=== PATIENT | female | born 1970 | race Hispanic/Latino ===

== ENCOUNTER 2021-09-17 14:45 | Emergency (ER) | payer OTHER ==
[~2021-09-17] VITALS: Ht 157.5 cm; Wt 117.9 kg
[2021-09-17] MEDS ORDERED: ACETAMINOPHEN 500 MG TABLET PO ONE (15:30)
[2021-09-17] MEDS ORDERED: ACET-2247 PO (16:14)
[2021-09-17 16:15] VITALS: BP 162/86
[2021-09-24] MEDS ORDERED: OMEP20TA25 PO (23:19)
== END 2021-09-17 16:35 | disposition home or self-care (01) ==
LOC: EDH 14:45
DX: J02.9 Acute pharyngitis, unspecified (principal); Z20.822 Contact with and (suspected) exposure to COVID-19; E66.9 Obesity, unspecified; I10 Essential (primary) hypertension; Z88.5 Allergy status to narcotic agent; Z88.8 Allergy status to other drugs, medicaments and biological substances; Z68.42 Body mass index [BMI] 45.0-49.9, adult
CPT/HCPCS: 87804; 87880

== ENCOUNTER 2021-09-24 19:27 | Emergency (ER) | payer MEDICAID, OTHER ==
[~2021-09-24] VITALS: Ht 157.5 cm; Wt 119.3 kg
[~2021-09-24 19:27] MED LIST: ACET-2247 PO
[2021-09-24] MEDS ORDERED: 0.9%NACL 1000ML 1,000 ML IV ONE ×2 (19:59→20:00)
[2021-09-24 20:02] LABS: BASOPHILS % (AUTO) 0.4 % (0.0-5.0); EOSINOPHILS % (AUTO) 2.7 % (0.0-8.0); HEMATOCRIT 41.4 % (36-48); LYMPHOCYTES % (AUTO) 19.6 % (21.0-51.0); MEAN CORPUSCULAR HEMOGLOBIN 31.1 pg (27.0-33.0); MEAN CORPUSCULAR HGB CONC 33.1 g/dL (32.0-36.0); MEAN CORPUSCULAR VOLUME 93.9 fL (79-99); MONOCYTES % (AUTO) 5.5 % (3.0-13.0); NEUTROPHILS % (AUTO) 71.3 % (40.0-77.0); PLATELET COUNT (AUTO) 151 K/uL (130-400); RED BLOOD CELL COUNT(AUTO) 4.41 MIL/uL (4.00-5.50); RED CELL DISTRIBUTION WIDTH 14.8 % (11.0-15.5); WHITE BLOOD COUNT (AUTO) 7.9 K/uL (4.8-10.8)
[2021-09-24 20:03] LABS: APPEARANCE,URINE Cloudy (CLEAR); BILIRUBIN,URINE Moderate (NEGATIVE); COLOR,URINE Dark Yellow (YELLOW); GLUCOSE, URINE (UA) Negative (NEGATIVE); KETONES,URINE 15 mg/dL (NEGATIVE); LEUKOCYTE ESTERASE ,URINE Small (NEGATIVE); NITRATE,URINE Positive (NEGATIVE); OCCULT BLOOD,URINE Negative (NEGATIVE); PH,URINE 7.5 (5.0-8.0); PROTEIN,URINE Trace mg/dL (NEGATIVE)
[2021-09-24] MEDS ORDERED: FAMOTIDINE 20MG VIAL IV ONE ×2 (20:04→20:30)
[2021-09-24] MEDS ORDERED: MORPHINE 4 MG SYG ONE (20:04)
[2021-09-24] MEDS ORDERED: ONDANSETRON 4MG INJ ONE (20:04)
[2021-09-24 20:13] LABS: CREATININE 0.7 mg/dL (0.5-1.5); POTASSIUM 3.6 mmol/L (3.5-5.1)
[2021-09-24 20:24] LABS: ALBUMIN 3.5 g/dL (3.5-5.0); BILIRUBIN,TOTAL 2.4 mg/dL (0.2-1.0); TOTAL PROTEIN, SERUM 7.9 g/dL (6.0-8.3)
[2021-09-24] MEDS ORDERED: IOHEXOL-350 75 ML VIAL IV ONE (20:28)
[2021-09-24] MEDS ORDERED: ONDANSETRON 4MG INJ IVP ONE (20:30)
[2021-09-24] MEDS ORDERED: MORPHINE 4 MG SYG IVP ONE (20:30)
[2021-09-24 20:48] LABS: BACTERIA,URINE Few /HPF (None Seen); MUCUS,URINE Few LPF (None Seen); SQUAMOUS EPITHELIAL CELL,UR Few /HPF (0-2)
[2021-09-24] MEDS ORDERED: CEFTRIAXONE 1G VIAL IV ONE (21:30)
[2021-09-24] MEDS ORDERED: PANTOPRAZOLE 40 MG/VIAL IVP ONE (22:30)
[2021-09-24] MEDS ORDERED: LORAZEPAM 2 MG/ML 1 ML VIAL IVP ONE (22:30)
[2021-09-24] MEDS ORDERED: ONDA4TAB10 PO (23:19)
[2021-09-24] MEDS ORDERED: FAMO-136 PO (23:19)
[2021-09-24] MEDS ORDERED: OMEP20TA20 PO (23:19)
[2021-09-24] MEDS ORDERED: L.AC1CAP6 PO (23:19)
[2021-09-24 23:39] VITALS: BP 120/74
== END 2021-09-24 23:49 | disposition home or self-care (01) ==
LOC: EDH 19:27
DX: K52.9 Noninfective gastroenteritis and colitis, unspecified (principal); F41.9 Anxiety disorder, unspecified; K76.0 Fatty (change of) liver, not elsewhere classified; R74.8 Abnormal levels of other serum enzymes; Z88.5 Allergy status to narcotic agent; Z88.8 Allergy status to other drugs, medicaments and biological substances; Z90.710 Acquired absence of both cervix and uterus; Z79.899 Other long term (current) drug therapy
CPT/HCPCS: 36415; 74177; 80053; 81001; 82140; 83605; 83690; 84484; 84702; 85025; 87088; 93005; 96361; 96374; 96375; 99285; J0696; J2060; J2270; J2405; J7030; Q9967; S0028; S0164; C9113; J3490

== ENCOUNTER 2021-10-30 18:06 | Emergency (ER) | payer OTHER ==
[~2021-10-30] VITALS: Ht 157.5 cm; Wt 90.7 kg
[~2021-10-30 18:06] MED LIST changes: +FAMO-136 PO; +L.AC1CAP6 PO; +OMEP20TA20 PO; +ONDA4TAB10 PO
[2021-10-30 18:47] LABS: BASOPHILS % (AUTO) 0.4 % (0.0-5.0); EOSINOPHILS % (AUTO) 1.6 % (0.0-8.0); HEMATOCRIT 42.7 % (36-48); LYMPHOCYTES % (AUTO) 19.2 % (21.0-51.0); MEAN CORPUSCULAR HEMOGLOBIN 31.9 pg (27.0-33.0); MEAN CORPUSCULAR VOLUME 93.8 fL (79-99); MONOCYTES % (AUTO) 4.4 % (3.0-13.0); NEUTROPHILS % (AUTO) 73.9 % (40.0-77.0); PLATELET COUNT (AUTO) 253 K/uL (130-400); RED BLOOD CELL COUNT(AUTO) 4.55 MIL/uL (4.00-5.50); RED CELL DISTRIBUTION WIDTH 13.2 % (11.0-15.5); WHITE BLOOD COUNT (AUTO) 13.3 K/uL (4.8-10.8)
[2021-10-30 18:49] LABS: APPEARANCE,URINE Clear (CLEAR); BILIRUBIN,URINE Negative (NEGATIVE); COLOR,URINE Yellow (YELLOW); GLUCOSE, URINE (UA) Negative (NEGATIVE); KETONES,URINE Negative (NEGATIVE); LEUKOCYTE ESTERASE ,URINE Small (NEGATIVE); NITRATE,URINE Negative (NEGATIVE); OCCULT BLOOD,URINE Negative (NEGATIVE); PROTEIN,URINE Negative (NEGATIVE)
[2021-10-30 18:51] LABS: CREATININE 0.7 mg/dL (0.5-1.5); POTASSIUM 3.8 mmol/L (3.5-5.1)
[2021-10-30 18:56] LABS: BACTERIA,URINE Few /HPF (None Seen); RBC,URINE 0-1 /HPF (0-1); SQUAMOUS EPITHELIAL CELL,UR Few /HPF (0-2)
[2021-10-30 18:57] LABS: MUCUS,URINE Rare LPF (None Seen)
[2021-10-30 18:58] LABS: ALBUMIN 3.3 g/dL (3.5-5.0); BILIRUBIN,TOTAL 0.6 mg/dL (0.2-1.0); TOTAL PROTEIN, SERUM 7.4 g/dL (6.0-8.3)
[2021-10-30 19:48] LABS: AMPHET/METH SCREEN,URINE NEGATIVE (NEGATIVE); BARBITURATE SCREEN, URINE NEGATIVE (NEGATIVE); BENZODIAZEPINES SCREEN,URINE POSITIVE (NEGATIVE); CANNABINOID SCREEN,URINE NEGATIVE (NEGATIVE); COCAINE SCREEN,URINE NEGATIVE (NEGATIVE); OPIATE SCREEN,URINE NEGATIVE (NEGATIVE); PHENCYCLIDINE SCREEN,URINE NEGATIVE (NEGATIVE)
[2021-10-30] MEDS ORDERED: PANTOPRAZOLE 40 MG/VIAL IVP ONE (20:00)
[2021-10-30] MEDS ORDERED: 0.9%NACL 1000ML 1,000 ML IV ONE (20:00)
[2021-10-30] MEDS ORDERED: ONDANSETRON 4MG INJ IVP ONE (20:00)
[2021-10-30] MEDS ORDERED: PANTOPRAZOLE 40 MG/VIAL ONE (21:05)
[2021-10-30] MEDS ORDERED: ONDANSETRON 4MG INJ ONE (21:05)
[2021-10-30] MEDS ORDERED: MAG/ALUM/SIMETH 30 ML UDCUP PO ONE (22:00)
[2021-10-30] MEDS ORDERED: LIDOCAINE HCL 2% VISCOUS 15 ML UDCUP PO ONE (22:00)
[2021-10-30] MEDS ORDERED: DICYCLOMINE HCL 10 MG/5 ML ML PO ONE (22:00)
[2021-10-30] MEDS ORDERED: KETOROLAC 15MG/ML VIAL (15MG/ML) IV ONE (22:00)
[2021-10-30] MEDS ORDERED: CEPH500B PO (22:16)
[2021-10-30] MEDS ORDERED: FAMO20TA8 PO (22:16)
[2021-10-30 22:57] VITALS: BP 124/67
== END 2021-10-30 23:05 | disposition home or self-care (01) ==
LOC: EDH 18:06
DX: N39.0 Urinary tract infection, site not specified (principal); K29.70 Gastritis, unspecified, without bleeding; K21.9 Gastro-esophageal reflux disease without esophagitis; Z79.1 Long term (current) use of non-steroidal anti-inflammatories (NSAID); Z79.899 Other long term (current) drug therapy; Z88.5 Allergy status to narcotic agent; Z88.8 Allergy status to other drugs, medicaments and biological substances
CPT/HCPCS: 36415; 80053; 80305; 81001; 81025; 83690; 85025; 96361; 96374; 96375; 99284; C9113; J1885; J2405; J7030

== ENCOUNTER 2021-11-30 16:24 | Emergency (ER) | payer MEDICAID, OTHER ==
[~2021-11-30] VITALS: Ht 157.5 cm; Wt 108.9 kg
[~2021-11-30 16:24] MED LIST changes: +CEPH500B PO; +FAMO20TA8 PO
[2021-11-30 17:04] LABS: BASOPHILS % (AUTO) 0.3 % (0.0-5.0); EOSINOPHILS % (AUTO) 0.2 % (0.0-8.0); HEMATOCRIT 42.8 % (36-48); LYMPHOCYTES % (AUTO) 16.3 % (21.0-51.0); MEAN CORPUSCULAR HEMOGLOBIN 30.8 pg (27.0-33.0); MEAN CORPUSCULAR HGB CONC 34.6 g/dL (32.0-36.0); MEAN CORPUSCULAR VOLUME 89.2 fL (79-99); MONOCYTES % (AUTO) 3.4 % (3.0-13.0); NEUTROPHILS % (AUTO) 79.5 % (40.0-77.0); PLATELET COUNT (AUTO) 260 K/uL (130-400); RED CELL DISTRIBUTION WIDTH 12.4 % (11.0-15.5); WHITE BLOOD COUNT (AUTO) 12.1 K/uL (4.8-10.8)
[2021-11-30 17:15] LABS: CREATININE 0.9 mg/dL (0.5-1.5); POTASSIUM 3.9 mmol/L (3.5-5.1)
[2021-11-30 17:24] LABS: ALBUMIN 3.8 g/dL (3.5-5.0); BILIRUBIN,TOTAL 2.2 mg/dL (0.2-1.0); TOTAL PROTEIN, SERUM 8.3 g/dL (6.0-8.3)
[2021-11-30] MEDS ORDERED: LORAZEPAM 2 MG/ML 1 ML VIAL ONE (18:49)
[2021-11-30] MEDS ORDERED: ALPR2TAB2 PO (19:01)
[2021-11-30 19:02] VITALS: BP 131/82
== END 2021-11-30 19:12 | disposition home or self-care (01) ==
LOC: EDH 16:24
DX: F41.9 Anxiety disorder, unspecified (principal); F13.20 Sedative, hypnotic or anxiolytic dependence, uncomplicated; F32.A Depression, unspecified; I10 Essential (primary) hypertension; K21.9 Gastro-esophageal reflux disease without esophagitis; Z88.5 Allergy status to narcotic agent; Z88.8 Allergy status to other drugs, medicaments and biological substances; Z79.899 Other long term (current) drug therapy
CPT/HCPCS: 36415; 80053; 84484; 85025; 93005; 96372; 99284; J2060

== ENCOUNTER 2021-12-06 17:31 | Emergency (ER) | payer MEDICAID ==
[~2021-12-06] VITALS: Ht 157.5 cm; Wt 113.4 kg
[~2021-12-06 17:31] MED LIST changes: +ALPR2TAB2 PO
[2021-12-06 18:03] LABS: BASOPHILS % (AUTO) 0.2 % (0.0-5.0); EOSINOPHILS % (AUTO) 0.8 % (0.0-8.0); HEMATOCRIT 40.3 % (36-48); LYMPHOCYTES % (AUTO) 21.5 % (21.0-51.0); MEAN CORPUSCULAR HEMOGLOBIN 31.1 pg (27.0-33.0); MEAN CORPUSCULAR HGB CONC 34.7 g/dL (32.0-36.0); MEAN CORPUSCULAR VOLUME 89.6 fL (79-99); MONOCYTES % (AUTO) 8.4 % (3.0-13.0); NEUTROPHILS % (AUTO) 68.7 % (40.0-77.0); PLATELET COUNT (AUTO) 150 K/uL (130-400); RED CELL DISTRIBUTION WIDTH 12.7 % (11.0-15.5); WHITE BLOOD COUNT (AUTO) 8.4 K/uL (4.8-10.8)
[2021-12-06 18:13] LABS: CREATININE 0.7 mg/dL (0.5-1.5); POTASSIUM 3.5 mmol/L (3.5-5.1)
[2021-12-06 18:17] LABS: ALBUMIN 3.4 g/dL (3.5-5.0); BILIRUBIN,TOTAL 1.7 mg/dL (0.2-1.0); TOTAL PROTEIN, SERUM 7.6 g/dL (6.0-8.3)
[2021-12-06 18:19] LABS: INR 1.04 (0.85-1.15); PROTHROMBIN TIME 11.3 SEC (9.6-11.6)
[2021-12-06 18:20] LABS: PARTIAL THROMBOPLASTIN TIME 27.4 SEC (26.3-35.5)
[2021-12-06] MEDS ORDERED: LORAZEPAM 2 MG/ML 1 ML VIAL IVP ONE (20:00)
[2021-12-06] MEDS ORDERED: KETOROLAC 15MG/ML VIAL (15MG/ML) IV ONE (20:00)
[2021-12-06] MEDS ORDERED: 0.9%NACL 1000ML 1,000 ML IV ONE (20:00)
[2021-12-06] MEDS ORDERED: ONDANSETRON 4MG INJ IVP ONE (20:00)
[2021-12-06 20:34] VITALS: BP 120/66
[2021-12-06] MEDS ORDERED: FAMO-136 PO (20:46)
[2021-12-06] MEDS ORDERED: ONDA4TAB10 PO (20:46)
[2021-12-06] MEDS ORDERED: PANT40TA PO (20:46)
== END 2021-12-06 21:04 | disposition home or self-care (01) ==
LOC: EDH 17:31
DX: K29.70 Gastritis, unspecified, without bleeding (principal); F41.9 Anxiety disorder, unspecified; I10 Essential (primary) hypertension; K21.9 Gastro-esophageal reflux disease without esophagitis; Z79.1 Long term (current) use of non-steroidal anti-inflammatories (NSAID); Z79.899 Other long term (current) drug therapy; Z88.5 Allergy status to narcotic agent; Z88.8 Allergy status to other drugs, medicaments and biological substances
CPT/HCPCS: 36415; 80053; 83690; 84484; 85025; 85610; 85730; 93005; 96361; 96374; 96375; 99284; J1885; J2060; J2405; J7030

== ENCOUNTER 2022-02-15 13:02 | Emergency (ER) | payer MEDICAID ==
[~2022-02-15] VITALS: Ht 157.5 cm; Wt 122.5 kg
[~2022-02-15 13:02] MED LIST changes: +PANT40TA PO
[2022-02-15] MEDS ORDERED: ACETAMINOPHEN WITH CODEINE 1 TAB TAB PO ONE (14:00)
[2022-02-15 14:48] VITALS: BP 147/100
[2022-02-15] MEDS ORDERED: CYCL10TA16 PO (15:05)
[2022-02-15] MEDS ORDERED: IBUP-2070 PO (15:05)
== END 2022-02-15 15:20 | disposition home or self-care (01) ==
LOC: EDH 13:02
DX: S00.12XA Contusion of left eyelid and periocular area, initial encounter (principal); S00.03XA Contusion of scalp, initial encounter; S10.93XA Contusion of unspecified part of neck, initial encounter; M54.50 Low back pain, unspecified; M25.512 Pain in left shoulder; I10 Essential (primary) hypertension; M19.90 Unspecified osteoarthritis, unspecified site; K21.9 Gastro-esophageal reflux disease without esophagitis; Z88.5 Allergy status to narcotic agent; Z88.8 Allergy status to other drugs, medicaments and biological substances; Z79.899 Other long term (current) drug therapy; Y08.89XA Assault by other specified means, initial encounter; Y93.89 Activity, other specified; Y92.89 Other specified places as the place of occurrence of the external cause; Y99.8 Other external cause status
CPT/HCPCS: 70450; 70486; 72125; 72131; 73030

== ENCOUNTER 2022-03-17 18:54 | Emergency (ER) | payer MEDICAID ==
[~2022-03-17] VITALS: Ht 157.5 cm; Wt 120.2 kg
[~2022-03-17 18:54] MED LIST changes: +CYCL10TA16 PO; +IBUP-2070 PO
[2022-03-17] MEDS ORDERED: BENZ200C53 PO (22:13)
[2022-03-17] MEDS ORDERED: ALBULBK PO (22:13)
[2022-03-17 22:33] VITALS: BP 140/85
== END 2022-03-17 22:34 | disposition home or self-care (01) ==
LOC: EDH 18:54
DX: R06.2 Wheezing (principal); R05.9 Cough, unspecified; Z20.822 Contact with and (suspected) exposure to COVID-19; F32.A Depression, unspecified; F41.9 Anxiety disorder, unspecified; I10 Essential (primary) hypertension; K21.9 Gastro-esophageal reflux disease without esophagitis; M19.90 Unspecified osteoarthritis, unspecified site; Z79.1 Long term (current) use of non-steroidal anti-inflammatories (NSAID); Z79.899 Other long term (current) drug therapy; Z88.5 Allergy status to narcotic agent; Z88.8 Allergy status to other drugs, medicaments and biological substances
CPT/HCPCS: 99284; 71045; 87635; 87804 ×2; C9803

== ENCOUNTER 2022-06-04 20:42 | Emergency (ER) | payer MEDICAID ==
[~2022-06-04] VITALS: Ht 157.5 cm; Wt 127.5 kg
[~2022-06-04 20:42] MED LIST changes: +ALBULBK PO; +BENZ200C53 PO
[2022-06-04 20:53] VITALS: BP 168/87
[2022-06-04] MEDS ORDERED: SOLU-MEDROL 125MG VIAL IM ONE (22:00)
[2022-06-04] MEDS ORDERED: CYCLOBENZAPRINE HCL 10 MG TABLET PO ONE (22:00)
[2022-06-04] MEDS ORDERED: METH4TAB3 PO (22:48)
[2022-06-04] MEDS ORDERED: CYCL5TAB PO (22:48)
== END 2022-06-04 23:25 | disposition home or self-care (01) ==
LOC: EDH 20:42
DX: M54.42 Lumbago with sciatica, left side (principal); M79.18 Myalgia, other site; E66.9 Obesity, unspecified; Z68.43 Body mass index [BMI] 50.0-59.9, adult; F41.9 Anxiety disorder, unspecified; F32.A Depression, unspecified; I10 Essential (primary) hypertension; Z88.6 Allergy status to analgesic agent; Z79.899 Other long term (current) drug therapy; Z98.890 Other specified postprocedural states
CPT/HCPCS: 99283; 72100; 96372; J2930

== ENCOUNTER 2023-04-27 15:40 | Emergency (ER) | payer MEDICAID ==
[~2023-04-27] VITALS: Ht 157.5 cm; Wt 113.4 kg
[~2023-04-27 15:40] MED LIST changes: +ALBU2SYR26 PO; -ALBULBK PO; +CYCL5TAB PO; +METH4TAB3 PO
[2023-04-27 17:47] LABS: SARS-CoV-2, RNA, NAAT NEGATIVE SARS CoV-2 (NEGATIVE)
[2023-04-27 17:51] LABS: INFLUENZA TYPE A Negative For Type A (NEGATIVE); INFLUENZA TYPE B Negative For Type B (NEGATIVE)
[2023-04-27] MEDS ORDERED: 0.9%NACL 1000ML 1,000 ML IV ONE (18:30)
[2023-04-27 18:38] LABS: BASOPHILS # (AUTO) 0.03 K/uL (0.00-0.20); BASOPHILS % (AUTO) 0.3 % (0.0-5.0); EOSINOPHILS # (AUTO) 0.07 K/uL (0.00-0.70); EOSINOPHILS % (AUTO) 0.6 % (0.0-8.0); HEMATOCRIT 43.5 % (36-48); IMMATURE GRANULOCYTE ABSOLUTE 0.06 K/uL (0-1); LYMPHOCYTES # (AUTO) 1.8 K/uL (1.0-4.8); LYMPHOCYTES % (AUTO) 15.8 % (21.0-51.0); MEAN CORPUSCULAR HEMOGLOBIN 30.7 pg (27.0-33.0); MEAN CORPUSCULAR HGB CONC 32.9 g/dL (32.0-36.0); MEAN CORPUSCULAR VOLUME 93.3 fL (79-99); MONOCYTES # (AUTO) 0.6 K/uL (0.1-1.0); MONOCYTES % (AUTO) 5.1 % (3.0-13.0); NEUTROPHILS # (AUTO) 8.7 K/uL (1.8-7.7); NEUTROPHILS % (AUTO) 77.7 % (40.0-77.0); PLATELET COUNT (AUTO) 298 K/uL (130-400); RED BLOOD CELL COUNT(AUTO) 4.66 MIL/uL (4.00-5.50); RED CELL DISTRIBUTION WIDTH 12.8 % (11.0-15.5); WHITE BLOOD COUNT (AUTO) 11.2 K/uL (4.8-10.8)
[2023-04-27 18:49] LABS: APPEARANCE,URINE CLOUDY (CLEAR); BILIRUBIN,URINE NEGATIVE (NEGATIVE); COLOR,URINE YELLOW (YELLOW); GLUCOSE, URINE (UA) NEGATIVE (NEGATIVE); KETONES,URINE NEGATIVE (NEGATIVE); LEUKOCYTE ESTERASE ,URINE 250 Leu/uL (NEGATIVE); NITRATE,URINE NEGATIVE (NEGATIVE); OCCULT BLOOD,URINE NEGATIVE (NEGATIVE); PROTEIN,URINE 30 mg/dL (NEGATIVE); UROBILINOGEN,URINE 0.2 mg/dL (0.2-1.0)
[2023-04-27 18:51] LABS: ADD UA MICROSCOPIC YES
[2023-04-27 18:59] LABS: POTASSIUM 3.9 mmol/L (3.5-5.1)
[2023-04-27 19:09] LABS: BACTERIA,URINE RARE /HPF (None Seen); MUCUS,URINE FEW LPF (None Seen); SQUAMOUS EPITHELIAL CELL,UR MOD /HPF (0-2)
[2023-04-27] MEDS ORDERED: KETOROLAC 15MG/ML VIAL (15MG/ML) IV ONE (20:00)
[2023-04-27] MEDS ORDERED: CYCLOBENZAPRINE HCL 10 MG TABLET PO ONE (20:00)
[2023-04-27] MEDS ORDERED: CEFTRIAXONE 1G VIAL IVPB ONE (20:00)
[2023-04-27] MEDS ORDERED: SULF1TAB42 PO (20:37)
[2023-04-27] MEDS ORDERED: B2/M1TAB PO (20:39)
[2023-04-27] MEDS ORDERED: CYCL-309 PO (20:39)
[2023-04-27 20:52] VITALS: BP 119/86; PULSE 75; RESP 17; O2SAT 98
== END 2023-04-27 21:03 | disposition home or self-care (01) ==
LOC: EDH 15:40
DX: G43.909 Migraine, unspecified, not intractable, without status migrainosus (principal); N39.0 Urinary tract infection, site not specified; F41.9 Anxiety disorder, unspecified; F32.A Depression, unspecified; I10 Essential (primary) hypertension; Z79.899 Other long term (current) drug therapy; Z88.5 Allergy status to narcotic agent; Z88.8 Allergy status to other drugs, medicaments and biological substances; Z90.49 Acquired absence of other specified parts of digestive tract; Z20.822 Contact with and (suspected) exposure to COVID-19
CPT/HCPCS: 99285; 96365; 87635; 96361; 96375; 80048; 84703; 85025; 87088; 87804 ×2; 81001; 36415; C9803; J7030; J0696; J1885

== ENCOUNTER 2023-05-10 11:22 | Emergency (ER) | payer MEDICAID ==
[~2023-05-10] VITALS: Ht 157.5 cm; Wt 115.7 kg
[~2023-05-10 11:22] MED LIST changes: +B2/M1TAB PO; +CYCL-309 PO; +SULF1TAB42 PO
[2023-05-10 12:29] LABS: BASOPHILS # (AUTO) 0.03 K/uL (0.00-0.20); BASOPHILS % (AUTO) 0.3 % (0.0-5.0); EOSINOPHILS # (AUTO) 0.13 K/uL (0.00-0.70); EOSINOPHILS % (AUTO) 1.3 % (0.0-8.0); HEMATOCRIT 41.1 % (36-48); IMMATURE GRANULOCYTE ABSOLUTE 0.05 K/uL (0-1); LYMPHOCYTES # (AUTO) 2.1 K/uL (1.0-4.8); LYMPHOCYTES % (AUTO) 21.7 % (21.0-51.0); MEAN CORPUSCULAR HEMOGLOBIN 31.1 pg (27.0-33.0); MEAN CORPUSCULAR HGB CONC 33.1 g/dL (32.0-36.0); MEAN CORPUSCULAR VOLUME 94.1 fL (79-99); MONOCYTES # (AUTO) 0.6 K/uL (0.1-1.0); MONOCYTES % (AUTO) 5.7 % (3.0-13.0); NEUTROPHILS # (AUTO) 6.8 K/uL (1.8-7.7); NEUTROPHILS % (AUTO) 70.5 % (40.0-77.0); PLATELET COUNT (AUTO) 280 K/uL (130-400); RED BLOOD CELL COUNT(AUTO) 4.37 MIL/uL (4.00-5.50); RED CELL DISTRIBUTION WIDTH 12.8 % (11.0-15.5); WHITE BLOOD COUNT (AUTO) 9.7 K/uL (4.8-10.8)
[2023-05-10 12:42] LABS: ALBUMIN 3.1 g/dL (3.5-5.0); BILIRUBIN,TOTAL 0.6 mg/dL (0.2-1.0); CREATININE 0.9 mg/dL (0.5-1.5); POTASSIUM 3.9 mmol/L (3.5-5.1); TOTAL PROTEIN, SERUM 6.7 g/dL (6.0-8.3)
[2023-05-10 13:33] LABS: APPEARANCE,URINE CLOUDY (CLEAR); BILIRUBIN,URINE 0.5 mg/dL (NEGATIVE); COLOR,URINE DARK-YELLOW (YELLOW); GLUCOSE, URINE (UA) NEGATIVE (NEGATIVE); KETONES,URINE 5 mg/dL (NEGATIVE); LEUKOCYTE ESTERASE ,URINE 250 Leu/uL (NEGATIVE); NITRATE,URINE NEGATIVE (NEGATIVE); OCCULT BLOOD,URINE NEGATIVE (NEGATIVE); PROTEIN,URINE 30 mg/dL (NEGATIVE); UROBILINOGEN,URINE 3 mg/dL (0.2-1.0)
[2023-05-10 13:37] LABS: HCG,QUALITATIVE URINE NEGATIVE (NEGATIVE)
[2023-05-10 13:45] LABS: ADD UA MICROSCOPIC YES
[2023-05-10 13:48] LABS: BACTERIA,URINE RARE /HPF (None Seen); CALCIUM OXALATE CRYSTALS,UR MOD /LPF (None Seen); MUCUS,URINE FEW LPF (None Seen); SQUAMOUS EPITHELIAL CELL,UR MANY /HPF (0-2); UNCLASSIFIED CRYSTAL 87 /HPF (None Seen)
[2023-05-10] MEDS ORDERED: 0.9%NACL 1000ML 1,000 ML IV ONE (14:00)
[2023-05-10] MEDS ORDERED: 0.9%NACL 1000ML 1,000 ML IV SCH (14:00)
[2023-05-10] MEDS ORDERED: MORPHINE 4 MG SYG IVP ONE ×2 (14:00)
[2023-05-10] MEDS ORDERED: ONDANSETRON 4MG INJ IVP ONE ×2 (14:00)
[2023-05-10] MEDS ORDERED: PHEN-847 PO (15:11)
[2023-05-10] MEDS ORDERED: CEPH500B PO (15:51)
[2023-05-10 16:05] VITALS: BP 107/51; PULSE 88; RESP 18; O2SAT 98
== END 2023-05-10 16:38 | disposition home or self-care (01) ==
LOC: EDH 11:22
DX: N39.0 Urinary tract infection, site not specified (principal); R10.2 Pelvic and perineal pain
CPT/HCPCS: 99285; 74176; 96374; 96361; 96375; 84484; 80053; 83690; 85025; 87088; 81001; 81025; 36415; 96376; J7030; J2405; J2270 ×2

== ENCOUNTER 2023-06-14 15:30 | Emergency (ER) | payer MEDICAID ==
[~2023-06-14] VITALS: Ht 157.5 cm; Wt 108.9 kg
[~2023-06-14 15:30] MED LIST changes: +PHEN-847 PO
[2023-06-14 15:46] VITALS: BP 157/97; PULSE 99; RESP 16
[2023-06-14 17:10] LABS: RAPID GROUP A STREP negative (NEGATIVE)
[2023-06-14 17:14] LABS: SARS-CoV-2, RNA, NAAT NEGATIVE SARS CoV-2 (NEGATIVE)
[2023-06-14 17:23] LABS: INFLUENZA TYPE A Negative For Type A (NEGATIVE); INFLUENZA TYPE B Negative For Type B (NEGATIVE)
[2023-06-14] MEDS ORDERED: OSEL75 PO (20:18)
[2023-06-14] MEDS ORDERED: BENZ200C53 PO (20:18)
== END 2023-06-14 21:30 | disposition home or self-care (01) ==
LOC: EDH 15:30
DX: B34.9 Viral infection, unspecified (principal); F41.9 Anxiety disorder, unspecified; F32.A Depression, unspecified; I10 Essential (primary) hypertension; K21.9 Gastro-esophageal reflux disease without esophagitis; Z20.828 Contact with and (suspected) exposure to other viral communicable diseases; Z79.899 Other long term (current) drug therapy; Z88.5 Allergy status to narcotic agent; Z90.49 Acquired absence of other specified parts of digestive tract; Z20.822 Contact with and (suspected) exposure to COVID-19
CPT/HCPCS: 99283; 87635; 87880; 87804 ×2; C9803

== ENCOUNTER 2023-09-04 16:22 | Emergency (ER) | payer MEDICAID, OTHER ==
[~2023-09-04] VITALS: Ht 157.5 cm; Wt 118.8 kg
[~2023-09-04 16:22] MED LIST changes: +OSEL75 PO
[2023-09-04] MEDS ORDERED: SOLU-MEDROL 125MG VIAL IVP ONE (17:30)
[2023-09-04] MEDS: CYCLOBENZAPRINE HCL 10 MG TABLET PO ONE (18:51)
[2023-09-04] MEDS: HYDROCODONE/ACETAMINOPHEN 5/325 MG TAB PO ONE (18:51)
[2023-09-04] MEDS: KETOROLAC 30MG VIAL (30MG/ML) IVP ONE (18:52)
[2023-09-04] MEDS ORDERED: CYCL-309 PO (20:09)
[2023-09-04] MEDS ORDERED: IBUP-2077 PO (20:09)
[2023-09-04] MEDS ORDERED: METH4TAB3 PO (20:09)
[2023-09-04 21:26] VITALS: BP 149/85; PULSE 76; RESP 16; O2SAT 99
== END 2023-09-04 21:34 | disposition home or self-care (01) ==
LOC: EDH 16:22
DX: G89.29 Other chronic pain (principal); M54.50 Low back pain, unspecified; M54.31 Sciatica, right side; I10 Essential (primary) hypertension; F41.9 Anxiety disorder, unspecified; F32.A Depression, unspecified; Z79.899 Other long term (current) drug therapy; Z90.49 Acquired absence of other specified parts of digestive tract; Z90.710 Acquired absence of both cervix and uterus; Z98.890 Other specified postprocedural states; Z88.5 Allergy status to narcotic agent
CPT/HCPCS: 99283; 96374; J2930; J1885

== ENCOUNTER 2023-12-10 19:19 | Observation (INO) | payer MEDICAID, OTHER ==
[~2023-12-10] VITALS: Ht 157.5 cm; Wt 118.3 kg
[~2023-12-10 19:19] MED LIST changes: +IBUP-2077 PO; +ONDA-243 PO; -ONDA4TAB10 PO
[2023-12-10] MEDS ORDERED: AMLO-258 PO (21:38)
[2023-12-10] MEDS ORDERED: ESCI20TA PO (21:40)
[2023-12-10] MEDS ORDERED: ALPR2TAB2 PO (21:41)
[2023-12-10] MEDS ORDERED: MINO100T10 PO (21:43)
[2023-12-10] MEDS ORDERED: TYLENOL PO (21:44)
[2023-12-10] MEDS ORDERED: [UNRECOGNIZED DRUG - REMARK] (21:46)
[2023-12-10] MEDS ORDERED: TYLENOL (21:46)
[2023-12-10] MEDS ORDERED: STEROID SHOT (21:46)
[2023-12-10] MEDS: CYCLOBENZAPRINE HCL 10 MG TABLET PO ONE (22:27)
[2023-12-10] MEDS: acetaMINOPHEN WITH coDEINE 1 TAB TAB PO ONE (22:28)
[2023-12-11] VITALS (8 sets, daily range): BP systolic 133–166; BP diastolic 76–108; PULSE 77–121; RESP 16–20; TEMP 97.7–99.1; O2SAT 98
[2023-12-11] MEDS: dexaMETHasone SOD PHOSPHATE 4 MG/ML 1ML VIAL IVP ONE (00:41)
[2023-12-11] MEDS: morPHINE 2 MG SYG IVP PRN (01:10)
[2023-12-11] MEDS ORDERED: acetaMINOPHEN 325 MG TAB PO PRN ×2 (02:00)
[2023-12-11] MEDS ORDERED: ONDANSETRON 4MG INJ IV PRN (02:00)
[2023-12-11 07:17] LABS: BASOPHILS # (AUTO) 0.01 K/uL (0.00-0.20); BASOPHILS % (AUTO) 0.1 % (0.0-5.0); EOSINOPHILS # (AUTO) 0.01 K/uL (0.00-0.70); EOSINOPHILS % (AUTO) 0.1 % (0.0-8.0); HEMATOCRIT 41.5 % (36-48); IMMATURE GRANULOCYTE ABSOLUTE 0.04 K/uL (0-1); LYMPHOCYTES # (AUTO) 0.7 K/uL (1.0-4.8); LYMPHOCYTES % (AUTO) 7.7 % (21.0-51.0); MEAN CORPUSCULAR HEMOGLOBIN 30.8 pg (27.0-33.0); MEAN CORPUSCULAR VOLUME 90.6 fL (79-99); MONOCYTES # (AUTO) 0.1 K/uL (0.1-1.0); MONOCYTES % (AUTO) 0.6 % (3.0-13.0); NEUTROPHILS # (AUTO) 8.5 K/uL (1.8-7.7); NEUTROPHILS % (AUTO) 91.1 % (40.0-77.0); PLATELET COUNT (AUTO) 205 K/uL (130-400); RED BLOOD CELL COUNT(AUTO) 4.58 MIL/uL (4.00-5.50); WHITE BLOOD COUNT (AUTO) 9.3 K/uL (4.8-10.8)
[2023-12-11 07:34] LABS: ALBUMIN 3.3 g/dL (3.5-5.0); BILIRUBIN,TOTAL 0.6 mg/dL (0.2-1.0); CREATININE 0.8 mg/dL (0.5-1.0); MAGNESIUM 1.8 mg/dL (1.80-2.40); POTASSIUM 3.6 mmol/L (3.5-5.1); TOTAL PROTEIN, SERUM 7.3 g/dL (6.0-8.3)
[2023-12-11] MEDS ORDERED: CYCLOBENZAPRINE HCL 10 MG TABLET PO PRN (08:00)
[2023-12-11 08:21] LABS: ERYTHROCYTE SEDIMENTATION RATE 12 MM/HR (0-30)
[2023-12-11] MEDS: dexaMETHasone SOD PHOSPHATE 4 MG/ML 1ML VIAL IV SCH (08:22)
[2023-12-11] MEDS: FAMOTIDINE 20MG TAB PO SCH (08:22)
[2023-12-11] MEDS ORDERED: POTASSIUM CHLORIDE 20MEQ/100ML 100 ML IV PRN (16:00)
[2023-12-11] MEDS ORDERED: POTASSIUM CHLORIDE 10% ELIXIR 20 MEQ/15 ML UDCUP PO PRN (16:00)
[2023-12-11] MEDS: KCL 20 MEQ ERTAB PO PRN (16:13)
[2023-12-11] MEDS: MAGNESIUM 2GM PREMIX 50ML 50 ML IV PRN (16:15)
[2023-12-11] MEDS: ALPRAZolam 0.25 MG TABLET PO ONE (18:48)
[2023-12-11] MEDS: hydrOXYzine 10 MG TABLET PO SCH (23:00)
[2023-12-12 00:25] LABS: APPEARANCE,URINE CLEAR (CLEAR); BILIRUBIN,URINE NEGATIVE (NEGATIVE); COLOR,URINE YELLOW (YELLOW); GLUCOSE, URINE (UA) NEGATIVE (NEGATIVE); KETONES,URINE NEGATIVE (NEGATIVE); LEUKOCYTE ESTERASE ,URINE 75 Leu/uL (NEGATIVE); NITRATE,URINE NEGATIVE (NEGATIVE); PROTEIN,URINE NEGATIVE (NEGATIVE); UROBILINOGEN,URINE 0.2 mg/dL (0.2-1.0)
[2023-12-12 00:26] LABS: ADD UA MICROSCOPIC YES
[2023-12-12 00:31] LABS: BACTERIA,URINE RARE /HPF (None Seen); MUCUS,URINE RARE LPF (None Seen); SQUAMOUS EPITHELIAL CELL,UR FEW /HPF (0-2)
[2023-12-12 03:59] VITALS: BP 154/97; PULSE 85; RESP 16; TEMP 98.5
[2023-12-12 07:48] VITALS: BP 131/87; PULSE 71; RESP 18; TEMP 97.8
[2023-12-12 09:05] VITALS: O2SAT 99
[2023-12-12] MEDS ORDERED: CYCL-309 PO (09:57)
[2023-12-12] MEDS ORDERED: DEXA6TAB PO (09:57)
[2023-12-12] MEDS ORDERED: CEPH500B PO (10:54)
== END 2023-12-12 12:01 | disposition home or self-care (01) ==
LOC: EDH 19:19 → EDHIP 19:20 → 3CH 12-11 03:08
PROVIDERS: ADMIT Hospitalist; ATTEND Hospitalist
DX: G89.29 Other chronic pain (principal); M54.50 Low back pain, unspecified; E66.01 Morbid (severe) obesity due to excess calories; I10 Essential (primary) hypertension; F41.8 Other specified anxiety disorders; F43.10 Post-traumatic stress disorder, unspecified; N39.0 Urinary tract infection, site not specified; Z90.710 Acquired absence of both cervix and uterus; Z79.899 Other long term (current) drug therapy
CPT/HCPCS: 99284; 96376 ×2; 96365; 96366; 96375; 83735; 80053; 85025; 85651; 36415; 97161; 97116; 87086; 81001; G0378 ×33; J3475; J2270 ×8; J1100 ×3

== ENCOUNTER 2025-01-18 00:44 | Emergency (ER) | payer MEDICAID ==
[~2025-01-18] VITALS: Ht 157.5 cm; Wt 99.8 kg
[~2025-01-18 00:44] MED LIST changes: -ACET-2247 PO; -ALBU2SYR26 PO; +ALPR1TAB7 PO; -ALPR2TAB2 PO; +AMLO-258 PO; -B2/M1TAB PO; -BENZ200C53 PO; -CEPH500B PO; -CYCL10TA16 PO; -CYCL5TAB PO; +DEXA6TAB PO; +ESCI20TA PO; -FAMO-136 PO; -FAMO20TA8 PO; -IBUP-2070 PO; -L.AC1CAP6 PO; -METH4TAB3 PO; -OMEP20TA20 PO; -OSEL75 PO; -PANT40TA PO; -PHEN-847 PO; -SULF1TAB42 PO
[2025-01-18 00:45] VITALS: BP 160/84; PULSE 108; RESP 20; TEMP 98
--- NOTE | 2025-01-18 01:44 | ERN ---
ED Note History of Present Illness Stated Complaint: ANXIETY Chief Complaint: Anxiety/Panic Attack Time Seen by MD: :30 Time Seen by Midlevel: :30 Dictation: The patient is a 55-year-old female with a history of anxiety, alcohol abuse who presents to the emergency department with complaints of chest pressure and shortness of breath and feelings of anxiety onset prior to arrival. Patient reports she had three can severe today. Denies any drug use. Denies any suicidal or homicidal ideations. Allergies: Coded Allergies: tramadol (Unverified Allergy, Unknown, 09/17/21) Home Meds Active Scripts Dexamethasone (Dexamethasone) 6 Mg Tablet, 6 MG PO DAILY, #7 TAB Prov:VICTORIA WOODARD AGPCNP 12/12/23 Cyclobenzaprine HCl (Cyclobenzaprine HCl) 10 Mg Tablet, 5 MG PO TID PRN for muscle relaxant, #15 TAB 0 Refills Prov:VICTORIA WOODARD AGPCNP 12/12/23 Ibuprofen (Ibuprofen 800 mg Tab) 800 Mg Tab, 800 MG PO Q8H PRN for fever or pain, #30 TAB 0 Refills Prov:SHAWNA AGUERO DIRECTOR FRAUD 09/04/23 Ondansetron (Ondansetron Odt) 4 Mg Tab.rapdis, 4 MG PO TID, #15 TAB Prov:ISAIAS NUNEZP 09/24/21 Reported Medications Alprazolam (Alprazolam) 1 Mg Tablet, 1 TAB PO TIDP PRN for ANXIETY for 30 Days, #90 TAB 0 Refills 09/24/24 Escitalopram Oxalate (Lexapro) 20 Mg Tablet, 30 MG PO DAILY, TAB 12/10/23 Amlodipine Besylate (Amlodipine Besylate) 10 Mg Tablet, 10 MG PO DAILY for 30 Days, #30 TAB 0 Refills 12/10/23 Past Medical History Past Medical History: Anxiety, GERD, Hypertension Additional Past Medical Hx: HX OF SCIATICA Surgical History: Hysterectomy, Cholecystectomy Surgical History Other: L SHOULDER, HEMARRHOIDECTOMY Social History: Negative, Lives with family History: Not Applicable RN Note Reviewed/Agreed w/PFSH: Yes Review of System Dictation Constitutional: Negative for fever,chills, and weight loss Eyes: Negative for injury, pain,redness, and discharge ENT: Negative for injury,pain or swelling Cardiovascular: Negative for palpitations, and edema positive for chest pain Respiratory: Negative for cough, and wheezing, positive for shortness of breath Abdomen/GI: Negative for abdominal pain, nausea, vomiting, diarrhea, and constipation Back: Negative for injury and pain : Negative for injury, bleeding and discharge MS/Extremity: Negative for injury and deformity Skin: Negative for rash, and discoloration Neuro: Negative for headache, weakness, numbness, tingling, and seizure Psych: Negative for suicide ideation, homicidal ideation, and hallucinations Initial Vital Sign VS Vital Signs Date Time Temp Pulse Resp B/P (MAP) Pulse Ox O2 Delivery O2 Flow Rate FiO2 01/18/25 00:45 98.1 108 20 160/84 99 Room Air Physical Exam Dictation Vital Signs reviewed General Appearance: Alert, oriented x 3, no acute distress, well developed, nourished. Appears anxious Head and Face: non-traumatic. Eyes: PERRL, pink conjunctivas, eyelid no trauma, anterior chamber with arcus senilis. Ears: Pinnas intact and no signs of trauma or erythema ear canals clear and no discharge TM no erythema Nose: No discharge, no bleeding. Oropharynx: Mouth normal, tongue pink. pharynx clear,no erythema, tonsils no exudates, no abscesses noted, mucous membrane moist Neck: Supple, non-tender, no thyromegaly, no masses, no JVD, no bruits Breast:Deferred Chest:No tenderness, no crepitus, no paradoxical movement, no retractions Lungs:Clear, well-ventilated, symmetric, no rales, no wheezing, no rhonchi, no stridor, good breath sounds bilaterally Heart: Regular rate, regular rhythm, no murmur, no gallops Vascular: no peripheral edema, Abdomen: Soft, positive bowel sounds, nondistended, no guarding, nontender, no rebound, no masses no hepatomegaly, no splenomegaly, no Wilson's sign, no hernias. Rectal: Deferred Genital: Deferred Neurological: Normal speech, motor function intact, sensory function intact Musculoskeletal: Neck nontender, full range of motion, back nontender, full range of motion, Extremities: nontender, full range of motion Skin: Color pink, dry, no turgor, no rash, no lacerations, no abrasions, no contusions. Lymphatic: Deferred Results (Laboratory/Radiology) Labs Reviewed?: Yes ED Course ED Course Medical Decision Making MDM The patient is a 55-year-old female with a history of anxiety, alcohol abuse who presents to the emergency department with complaints of chest pressure and shortness of breath and feelings of anxiety onset prior to arrival. Patient reports she had three can severe today. Denies any drug use. Denies any suicidal or homicidal ideations. Differential diagnosis: ACS, electrolyte imbalance, alcohol intoxication, pneumonia DX & DISP Disposition: AMA Departure Condition: Stable Referrals: BRAD BARBER MD (PCP) VIANEY MARADIAGA Jan 18, 2025 01:44
[2025-01-18] MEDS ORDERED: M.V.I. IV [ADULT] 10 ML, FOLic ACID 5 MG/ML VIAL 1 MG, THIAMINE HCL 100 MG in 0.9%NACL ... IV SCH (02:00)
[2025-01-18 02:09] LABS: IMMATURE GRANULOCYTE ABSOLUTE 0.01 K/uL (0-1); NUCLEATED RED BLOOD CELLS 0.0 % (0.0-0.19); PLATELET COUNT (AUTO) 200 K/uL (130-400); RED BLOOD CELL COUNT(AUTO) 4.85 MIL/uL (4.00-5.50); RED CELL DISTRIBUTION WIDTH 13.5 % (11.0-15.5); WHITE BLOOD COUNT (AUTO) 5.2 K/uL (4.8-10.8)
[2025-01-18 02:16] LABS: CREATININE 0.6 mg/dL (0.5-1.0); GLOMERULAR FILTR. RATE CALC 107.0 mL/min (>90); GLUCOSE,RANDOM 124.0 mg/dL (70-105); SODIUM SERUM 140.0 mmol/L (136-145); UREA NITROGEN, BLOOD 8.0 mg/dL (7-18)
[2025-01-18 02:21] LABS: ALCOHOL, BLOOD 237.0 mg/dL (0-10); CREATINE KINASE, TOTAL 45.0 U/L (21-232)
--- NOTE | 2025-01-18 02:30 | NUR ---
UA COLLECTED AND SENT
[2025-01-18 02:40] LABS: ADD UA MICROSCOPIC YES; APPEARANCE,URINE CLOUDY (CLEAR); GLUCOSE, URINE (UA) NEGATIVE (NEGATIVE); HCG,QUALITATIVE URINE NEGATIVE (NEGATIVE); LEUKOCYTE ESTERASE ,URINE 25 Leu/uL (NEGATIVE); NITRATE,URINE NEGATIVE (NEGATIVE); OCCULT BLOOD,URINE LARGE (NEGATIVE)
[2025-01-18 02:42] LABS: SQUAMOUS EPITHELIAL CELL,UR MOD /HPF (0-2); UNCLASSIFIED CRYSTAL 1 /HPF (None Seen)
[2025-01-18 02:45] LABS: AMPHET/METH SCREEN,URINE NEGATIVE (NEGATIVE); BARBITURATE SCREEN, URINE NEGATIVE (NEGATIVE); CANNABINOID SCREEN,URINE NEGATIVE (NEGATIVE); COCAINE SCREEN,URINE NEGATIVE (NEGATIVE)
--- NOTE | 2025-01-18 02:55 | NUR ---
PT SITTING UNDER TV IN LOBBY. CALM, NO LONGER CRYING. GOOD EVEN CHEST RISE AND FALL NOTED.
[2025-01-18] MEDS ORDERED: 0.9%NACL 1000ML 1,000 ML IV ONE (03:00)
--- NOTE | 2025-01-18 03:00 | NUR ---
PT CALLED, NO ANSWER FOR EKG
--- NOTE | 2025-01-18 03:07 | NUR ---
PT CALLED BY PRINCE VELEZ FOR EKG, NO ANSWER
--- NOTE | 2025-01-18 03:11 | HMCIMG ---
EXAM: CR Chest, 1 view. CLINICAL HISTORY: Chest pain. COMPARISON: Chest x-ray dated 03/17/22. FINDINGS: The lungs show no infiltrate or other acute findings. No pleural effusion or pneumothorax. The cardiomediastinal silhouette is within normal limits. No acute osseous abnormality. IMPRESSION: No acute cardiopulmonary pathology is evident. No gross interval changes. /[place]
--- NOTE | 2025-01-18 03:14 | NUR ---
PT CALLED, NO ANSWER, NOT IN LOBBY. NO COMMUNICATION WITH STAFF ON DESIRE TO LEAVE
--- NOTE | 2025-01-18 03:17 | NUR ---
PT NOT IN LOBBY OR RESTROOM, NO ANSWER WHEN CALLED
--- NOTE | 2025-01-18 03:18 | NUR ---
CALLED AND SPOKE WITH Stepan LOFTON RN TO SEE IF PT WAS CALLED TO BACK. PT IS NOT IN MAIN ER
== END 2025-01-18 03:20 | disposition left against medical advice (07) ==
LOC: EDH 00:44
DX: F41.0 Panic disorder [episodic paroxysmal anxiety] (principal); R07.89 Other chest pain; R06.02 Shortness of breath; I10 Essential (primary) hypertension; Z79.52 Long term (current) use of systemic steroids; Z79.899 Other long term (current) drug therapy; Z88.5 Allergy status to narcotic agent; Z90.49 Acquired absence of other specified parts of digestive tract; Z90.710 Acquired absence of both cervix and uterus; Z53.29 Procedure and treatment not carried out because of patient's decision for other reasons
CPT/HCPCS: 36415; 71045; 80048; 80305; 81001; 81025; 82550; 83735; 84484; 85025; 87086; 99284; J3411; J3490; J7030

== ENCOUNTER 2025-01-21 01:52 | Emergency (ER) | payer MEDICAID ==
[~2025-01-21] VITALS: Ht 157.5 cm; Wt 108.4 kg
--- NOTE | 2025-01-21 02:34 | ERN ---
General Chief Complaint: Shortness of Breath Stated Complaint: C/O SOB, CHEST TIGHTNESS W/PHLEGM Time Seen by MD: 01:58 Source: patient History of Present Illness Initial Comments 55-year-old female with multiple medical problems who was diagnosed with COVID a week ago comes in with persistent upper respiratory tract infection symptoms and tight chest tightness. She also feels she is dehydrated because she drank some alcohol to feel better and has been voiding quite a bit. Allergies: Coded Allergies: tramadol (Unverified Allergy, Unknown, 09/17/21) Home Meds Active Scripts Dexamethasone (Dexamethasone) 6 Mg Tablet, 6 MG PO DAILY, #7 TAB Prov:VICTORIA WOODARD AGPCNP 12/12/23 Cyclobenzaprine HCl (Cyclobenzaprine HCl) 10 Mg Tablet, 5 MG PO TID PRN for muscle relaxant, #15 TAB 0 Refills Prov:VICTORAI WOODARD AGPCNP 12/12/23 Ibuprofen (Ibuprofen 800 mg Tab) 800 Mg Tab, 800 MG PO Q8H PRN for fever or pain, #30 TAB 0 Refills Prov:SHAWNA AGUERO SUPERVISOR PHOSPHORIC ACID 09/04/23 Ondansetron (Ondansetron Odt) 4 Mg Tab.rapdis, 4 MG PO TID, #15 TAB Prov:ISAIAS NUNEZ BUSINESS OFFICE TECHNOLOGY INSTRUCTOR 09/24/21 Reported Medications Alprazolam (Alprazolam) 1 Mg Tablet, 1 TAB PO TIDP PRN for ANXIETY for 30 Days, #90 TAB 0 Refills 09/24/24 Escitalopram Oxalate (Lexapro) 20 Mg Tablet, 30 MG PO DAILY, TAB 12/10/23 Amlodipine Besylate (Amlodipine Besylate) 10 Mg Tablet, 10 MG PO DAILY for 30 Days, #30 TAB 0 Refills 12/10/23 Past Medical History Past Medical History: Anxiety, Depression, Hypertension, Other Medical History Other: HX OF SCIATIC NERVE PAIN Past Surgical History: Other Surgical History Other: L SHOULDER, HEMARRHOIDECTOMY Social History Social History: Negative, Lives with family Female( History) History: Not Applicable Constitutional: (-) chills, (-) diaphoresis, (-) fever, (-) malaise, (-) weakness, (-) other documentation EENTM: (-) eye pain, (-) blurred vision, (-) tearing, (-) double vision, (-) ear pain, (-) ear discharge, (-) nose pain, (-) nose congestion, (-) throat pain, (-) Throat swelling, (-) mouth pain, (-) tooth pain, (-) mouth swelling, (-) other documentation Respiratory: (+) cough, (+) wheezing Cardiovascular: (+) other documentation (Patient complaining of chest tightness.) Gastrointestinal/Abdominal: (-) nausea, (-) vomiting, (-) diarrhea, (-) abdominal pain, (-) abdominal distention, (-) constipation, (-) rectal bleeding, (-) dark stool/melena, (-) other documentation Genitourinary: (-) vaginal discharge, (-) vaginal bleeding, (-) dysuria, (-) frequency, (-) hematuria, (-) pain, (-) other documentation Musculoskeletal: (-) Neck pain, (-) back pain, (-) Flank Pain, (-) joint pain, (-) joint swelling, (-) muscle pain, (-) muscle stiffness, (-) gout, (-) other documentation Neuro: (-) altered mental status, (-) headache, (-) syncope, (-) paralysis, (-) numbness, (-) seizure, (-) pre-existing deficit, (-) tremors, (-) weakness, (-) dizziness, (-) slurred speech, (-) vertigo, (-) other documentation Physical Exam General Appearance: (+) moderate distress General Appearance comment Disheveled and teary-eyed Head/Face Trauma: No Eye: bilateral eye normal inspection, bilateral eye PERRL, bilateral eye EOMI Ear, Nose, Throat: (+) hearing grossly normal, (+) normal ENT inspection, (+) moist mucous membraine, (+) pharyngeal erythema Neck: (+) normal inspection, (+) supple, (+) full range of motion Respiratory: (+) chest non-tender, (+) lungs clear, (+) rhonchi Heart: (+) regular, (+) no gallop Vascular: (+) no edema, (+) normal peripheral pulse Gastrointestinal: (+) soft, (+) non-tender, (+) bowel sound present Results Laboratory and Microbiology Lab and Micro Result Laboratory Tests Test 01/21/25 02:01 01/21/25 02:29 01/21/25 02:32 01/21/25 06:12 Influenza Type A Antigen Negative For Type A Influenza Type B Antigen Negative For Type B SARS-CoV-2 Antigen (Rapid) PRESUMPTIVE NEGATIVE Group A Streptococcus Rapid NEGATIVE (NEGATIVE) White Blood Count 7.0 K/uL (4.8-10.8) Red Blood Count 4.97 MIL/uL (4.00-5.50) Hemoglobin 14.9 g/dL (12.0-16.0) Hematocrit 43.9 % (36-48) Mean Corpuscular Volume 88.3 fL (79-99) Mean Corpuscular Hemoglobin 30.0 pg (27.0-33.0) Mean Corpuscular Hemoglobin Concent 33.9 g/dL (32.0-36.0) Red Cell Distribution Width 13.4 % (11.0-15.5) Platelet Count 172 K/uL (130-400) Mean Platelet Volume 9.8 fL (7.5-10.5) Immature Granulocyte % (Auto) 0.3 % (0-1) Neutrophils (%) (Auto) 44.5 % (40.0-77.0) Lymphocytes (%) (Auto) 49.5 % (21.0-51.0) Monocytes (%) (Auto) 4.7 % (3.0-13.0) Eosinophils (%) (Auto) 0.7 % (0.0-8.0) Basophils (%) (Auto) 0.3 % (0.0-5.0) Neutrophils # (Auto) 3.1 K/uL (1.8-7.7) Lymphocytes # (Auto) 3.4 K/uL (1.0-4.8) Monocytes # (Auto) 0.3 K/uL (0.1-1.0) Eosinophils # (Auto) 0.05 K/uL (0.00-0.70) Basophils # (Auto) 0.02 K/uL (0.00-0.20) Absolute Immature Granulocyte (auto 0.02 K/uL (0-1) Nucleated Red Blood Cells 0.0 % (0.0-0.19) Sodium Level 139 mmol/L (136-145) Potassium Level 4.4 mmol/L (3.5-5.1) Chloride Level 98 mmol/L (101-111) L Carbon Dioxide Level 22 mmol/L (21-32) Blood Urea Nitrogen 7 mg/dL (7-18) Creatinine 0.6 mg/dL (0.5-1.0) Glomerular Filtration Rate Calc 107 mL/min (>90) Random Glucose 104 mg/dL (70-105) Total Calcium 8.4 mg/dL (8.5-10.1) L Total Bilirubin 1.9 mg/dL (0.2-1.0) H Aspartate Amino Transf (AST/SGOT) 56 U/L (10-37) H Alanine Aminotransferase (ALT/SGPT) 46 U/L (12-78) Alkaline Phosphatase 119 U/L (50-136) Total Protein 7.4 g/dL (6.0-8.3) Albumin 3.9 g/dL (3.5-5.0) Salicylates Level < 2.8 mg/dL (2.8-20.0) L Acetaminophen Level < 1 mcg/mL (10-30) L Serum Alcohol 140 mg/dL (0-10) H 21 mg/dL (0-10) H Urine Color YELLOW (YELLOW) Urine Appearance CLOUDY (CLEAR) H Urine pH 7.0 (5.0-8.0) Urine Specific Erhard 1.026 (1.001-1.031) Urine Protein 30 mg/dL (NEGATIVE) H Urine Glucose (UA) NEGATIVE mg/dL (NEGATIVE) Urine Ketones >=80 mg/dL (NEGATIVE) Urine Occult Blood NEGATIVE (NEGATIVE) Urine Nitrate NEGATIVE (NEGATIVE) Urine Bilirubin NEGATIVE mg/dL (NEGATIVE) Urine Urobilinogen 12 mg/dL (0.2-1.0) H Urine Leukocyte Esterase NEGATIVE Roger/uL Urine RBC 6-10 /HPF (0-1) H Urine WBC 6-10 /HPF (0-1) H Urine Squamous Epithelial Cells MOD /HPF (0-2) Urine Bacteria RARE /HPF (None Seen) Urine Opiates Screen NEGATIVE (NEGATIVE) Urine Barbiturates Screen NEGATIVE (NEGATIVE) Urine Phencyclidine Screen NEGATIVE (NEGATIVE) Urine Amphetamines Screen NEGATIVE (NEGATIVE) Urine Benzodiazepines Screen POSITIVE (NEGATIVE) H Urine Cocaine Screen NEGATIVE (NEGATIVE) Urine Marijuana (THC) Screen NEGATIVE (NEGATIVE) MDM MDM: Differential diagnosis: Persistent COVID infection, new respiratory tract infection, asthma, dehydration, anxiety, Rationale: Tests considered and ordered secondary to shared decision making include: Previous outside records reviewed: Old ER visits. Risk of complication and/or morbidity or mortality of patient management: None Medications-Per medication reconciliation Need for hospitalization: Patient does meet criteria for hospitalization. Need for emergency major/minor surgery: No There are no social concerns with this patient. Prescription drug management Prescriptions will include symptomatic care Patient's prior external medical records from other ER visits were reviewed by me as indicated. Prior testing and results from previous visits were reviewed. Prior tests were taken into account with medical decision making and resource utilization, independent historian/historians were used to obtain complete medical history. I independently interpreted the test that were performed, results were reviewed by me and considered findings on radiology if ordered. Patient feels a little better with the fluid bolus. Her chest x-ray is normal. Her chemistry panel shows mild hypochloremia hyperbilirubinemia and transaminitis. CBC is normal. UA is normal. Tox screen is positive for alcohol at 150 and for benzodiazepines. Patient takes Xanax daily. Salicylates and acetaminophen levels are normal as well I am waiting for patient's blood alcohol level to achieve a legal limit before discharging her. She may or may not go to [facility] for alcohol rehab. Patient's blood alcohol level is 21 I discharged her from a hospital ED Course Orders Procedure Category Date Status Time Covid19 (Sars Antigen LAB 01/21/25 Complete Rapid) 01:58 Influenza Type A & B, LAB 01/21/25 Complete Rapid 01:58 Rapid (Group A Strep) LAB 01/21/25 Complete 01:58 Alcohol, Blood LAB 01/21/25 Complete 02:20 Comprehensive LAB 01/21/25 Complete Metabolic Panel 02:20 Cbc With Differential LAB 01/21/25 Complete 02:20 Urinalysis Profile LAB 01/21/25 Complete 02:20 Drug Screen Urine LAB 01/21/25 Complete 02:20 Chest 1vw RAD 01/21/25 Resulted 02:20 Salicylate LAB 01/21/25 Complete 02:20 Acetaminophen LAB 01/21/25 Complete 02:20 Lactated Ringers PHA 01/21/25 Complete 1000ml (Lactated 02:20 Metoprolol Tartrate PHA 01/21/25 Complete (Lopressor) 03:00 Metoprolol Tartrate PHA 01/21/25 Complete (Lopressor) 04:00 Furosemide 40mg Vial PHA 01/21/25 Complete (Lasix 40mg Vial) 04:00 Insulin Regular, PHA 01/21/25 Complete Human 3ml (Humulin R 04:00 Alprazolam 1mg (Xanax PHA 01/21/25 Complete 1mg) 04:30 Alcohol, Blood LAB 01/21/25 Complete 06:01 Current Medications Medications (Trade) Dose Ordered Sig/Marga Route PRN Reason Start Time Stop Time Status Last Admin Dose Admin Alprazolam (XANax 1MG) 1 mg ONCE ONCE PO 01/21/25 04:30 01/21/25 04:31 DC 01/21/25 04:28 Furosemide (LASix 40MG VIAL) 40 mg ONCE ONCE IV 01/21/25 04:00 01/21/25 04:01 DC Insulin Human Regular (humuLIN R 100 UNIT/ML 3ML) 15 unit ONCE ONCE SQ 01/21/25 04:00 01/21/25 04:01 DC Lactated Ringer's (Lactated Ringers 1000ml) 1,000 ml BOLUS STAT IV 01/21/25 02:20 01/21/25 02:24 DC 01/21/25 02:58 Metoprolol Tartrate (loprESSOR) 2.5 mg ONCE ONCE IV 01/21/25 03:00 01/21/25 03:01 DC 01/21/25 03:05 Metoprolol Tartrate (loprESSOR) 2.5 mg ONCE ONCE IV 01/21/25 04:00 01/21/25 04:01 DC Vital Signs Date Time Temp Pulse Resp B/P (MAP) Pulse Ox O2 Delivery O2 Flow Rate FiO2 01/21/25 06:19 88 16 138/72 100 Room Air* 0 01/21/25 04:02 98.8 85 18 140/84 98 Room Air* 0 01/21/25 03:06 99.0 105 18 146/87 99 Room Air* 0 01/21/25 03:05 105 146/87 01/21/25 02:14 98.8 106 20 174/117 99 Room Air* 0 01/21/25 01:55 97.9 104 20 171/101 97 Room Air DX & DISP Disposition: Discharge Departure Impression: Primary Impression: Alcohol withdrawal Condition: Stable Referrals: BRAD BARBER MD (PCP) CARRIE BONILLA MD Jan 21, 2025 02:34
[2025-01-21 02:36] LABS: IMMATURE GRANULOCYTE ABSOLUTE 0.02 K/uL (0-1); NUCLEATED RED BLOOD CELLS 0.0 % (0.0-0.19); PLATELET COUNT (AUTO) 172 K/uL (130-400); RED BLOOD CELL COUNT(AUTO) 4.97 MIL/uL (4.00-5.50); RED CELL DISTRIBUTION WIDTH 13.4 % (11.0-15.5); WHITE BLOOD COUNT (AUTO) 7.0 K/uL (4.8-10.8)
[2025-01-21 02:37] LABS: COVID19 (SARS ANTIGEN RAPID) PRESUMPTIVE NEGATIVE (NEGATIVE)
[2025-01-21 02:38] LABS: INFLUENZA TYPE A Negative For Type A (NEGATIVE); INFLUENZA TYPE B Negative For Type B (NEGATIVE)
[2025-01-21 02:45] LABS: RAPID GROUP A STREP NEGATIVE (NEGATIVE)
[2025-01-21 02:53] LABS: CREATININE 0.6 mg/dL (0.5-1.0); GLOMERULAR FILTR. RATE CALC 107 mL/min (>90); GLUCOSE,RANDOM 104 mg/dL (70-105); SODIUM SERUM 139 mmol/L (136-145); UREA NITROGEN, BLOOD 7 mg/dL (7-18)
[2025-01-21 02:54] LABS: APPEARANCE,URINE CLOUDY (CLEAR); GLUCOSE, URINE (UA) NEGATIVE (NEGATIVE); LEUKOCYTE ESTERASE ,URINE NEGATIVE Leu/uL (NEGATIVE); NITRATE,URINE NEGATIVE (NEGATIVE); OCCULT BLOOD,URINE NEGATIVE (NEGATIVE)
[2025-01-21 02:58] LABS: ALCOHOL, BLOOD 140 mg/dL (0-10); ASPARTATE AMINOTRANSFERASE 56 U/L (10-37); TOTAL PROTEIN, SERUM 7.4 g/dL (6.0-8.3)
[2025-01-21] MEDS: LACTATED RINGERS 1000ML IV STA (02:58)
[2025-01-21 02:59] LABS: ADD UA MICROSCOPIC YES
[2025-01-21 03:00] LABS: SQUAMOUS EPITHELIAL CELL,UR MOD /HPF (0-2)
[2025-01-21 03:01] LABS: AMPHET/METH SCREEN,URINE NEGATIVE (NEGATIVE); BARBITURATE SCREEN, URINE NEGATIVE (NEGATIVE); CANNABINOID SCREEN,URINE NEGATIVE (NEGATIVE); COCAINE SCREEN,URINE NEGATIVE (NEGATIVE)
--- NOTE | 2025-01-21 04:00 | HMCIMG ---
EXAM: CR Chest, 1 view CLINICAL HISTORY: Cough. COMPARISON: Chest radiograph dated 01/18/2025. FINDINGS: The lungs show no infiltrates or other acute findings. No pleural effusion or pneumothorax. The cardiomediastinal silhouette is within normal limits. No acute osseous abnormality. IMPRESSION: No acute cardiopulmonary process is evident. No interval changes. /[place]
[2025-01-21 07:15] VITALS: BP 135/76; PULSE 86; RESP 16; TEMP 98.7; O2SAT 98
== END 2025-01-21 07:19 | disposition home or self-care (01) ==
LOC: EDH 01:52
DX: F10.939 Alcohol use, unspecified with withdrawal, unspecified (principal); F32.A Depression, unspecified; F41.9 Anxiety disorder, unspecified; I10 Essential (primary) hypertension; Z20.822 Contact with and (suspected) exposure to COVID-19; Z79.52 Long term (current) use of systemic steroids; Z79.899 Other long term (current) drug therapy; Z88.5 Allergy status to narcotic agent; Y90.9 Presence of alcohol in blood, level not specified
CPT/HCPCS: 99285; 96374; 96361; 71045; 87426; 80053; 80305; 85025; 87880; 87804 ×2; 36415; 81001; G0481; J7120; J3490